=== PATIENT | female | born 1940 | race Caucasian/White ===

== ENCOUNTER 2018-02-19 14:22 | Inpatient (IN) ==
[2018-02-19] MEDS: tiZANidine 4 MG TABLET PO PRN (22:22)
[2018-02-19] MEDS: traMADol 50 MG TABLET PO PRN (22:22)
[2018-02-20] MEDS: ALPRAZolam 1 MG TABLET PO PRN ×2 (01:45→19:51)
[2018-02-20 05:08] LABS: Basophils % 0.5 %; Eosinophils # 0.1 K/mcL (0.0-0.6); Eosinophils % 1.8 %; Hematocrit 28.1 % (35.3-44.9); Hemoglobin 9.3 g/dL (11.5-15.4); Immature Granulocytes % 0.4 % (0-4); Lymphocytes # 2.4 K/mcL (0.6-4.6); Lymphocytes % 33.3 %; Mean Corpuscular HGB Conc 33.1 g/dL (31.6-35.5); Mean Corpuscular Hemoglobin 28.1 pg (28.0-33.3); Mean Corpuscular Volume 84.9 fL (83.0-100.0); Mean Platelet Volume 11.4 fL (9.4-12.4); Monocytes # 0.8 K/mcL (0.0-1.3); Monocytes % 10.3 %; Neutrophils # 3.9 K/mcL (1.6-8.9); Platelet Count 286 K/mcL (140-400); Red Blood Count 3.31 M/mcL (3.82-4.97); Red Cell Distribution Width 14.2 % (11.5-14.5); Segmented Neutrophils % 53.7 %
[2018-02-20 05:27] LABS: Alanine Aminotransferase 8 Units/L (7-52); Albumin 2.7 g/dL (3.5-5.7); Albumin/Globulin Ratio 1.1 (1.1-2.2); Alkaline Phosphatase 78 Units/L (34-104); Aspartate Amino Transferase 18 Units/L (13-39); BUN/Creatinine Ratio 22 (6-26); Bilirubin,Total 0.4 mg/dL (0.3-1.0); Blood Urea Nitrogen 16 mg/dL (8-23); Calcium 8.1 mg/dL (8.6-10.3); Carbon Dioxide 28 mEq/L (23-29); Chloride 104 mEq/L (98-107); Globulin 2.5 g/dL (2.4-3.5); Glucose 104 mg/dL (70-105); Osmolality,Calculated 287 (280-300); Potassium 3.4 mEq/L (3.5-5.1); Sodium 138 mEq/L (136-145); Total Protein 5.2 g/dL (6.4-8.9); eGFR For African Americans > 60 (> 60); eGFR For Non-African Americans > 60 (> 60)
[2018-02-20 05:36] LABS: INR 1.3; Prothrombin Time 14.7 Seconds (9.4-12.1)
[2018-02-20] MEDS: Metoprolol XL (24 HR) Succ 25 MG TAB.ER.24H PO SCH (08:00)
[2018-02-20] MEDS: Aspirin Enteric Coated 81 MG Tablet PO SCH (08:01)
[2018-02-20] MEDS: Furosemide 40 MG TABLET PO SCH (08:01)
[2018-02-20] MEDS: Acetaminophen 325 MG TABLET PO SCH ×3 (08:04→19:50)
[2018-02-20] MEDS: traMADol 50 MG TABLET PO PRN ×2 (08:04→15:03)
[2018-02-20] MEDS ORDERED: TIZANIDINE HCL 2 MG PO SCH (09:00)
--- NOTE | 2018-02-20 11:24 | Internal Med History&Physical ---
Date of Encounter: 02/20/18 Time of Encounter: 11:24 Assessment and Plan (1) Status post lumbar spinal fusion Current visit: No Status: Acute Patient had spinal fusion status post left lower leg weakness and footdrop. Was evaluated by PT/OT today Pain appears to be adequately controlled with tramadol, -Tramadol discontinued -Starting [place] 5/325 -Continue scheduled Tylenol 3 times daily (2) Hypertension Current visit: No Status: Chronic Stable continue home medications Continue to monitor vital signs per shift Qualifiers: Hypertension type: essential hypertension Qualified Code(s): I10 - Essential (primary) hypertension (3) COPD (chronic obstructive pulmonary disease) Current visit: No Status: Chronic Chronic but stable on examination today, saturating at room air continue home medications Qualifiers: COPD type: unspecified COPD Qualified Code(s): J44.9 - Chronic obstructive pulmonary disease, unspecified (4) Hypokalemia Current visit: Yes Status: Acute Appears to be secondary to renal loss, patient on Lasix; home medication Replaced once with 20 mEq Repeat levels tomorrow (5) Left foot drop Current visit: No Status: Chronic Her examination today, possibly having 4+/5 There appear to be some activation of her dorsal flexion on examination today Given that this might have been associated with her spinal stenosis, we will wait and see if physical therapy will improve this even further (6) History of CVA (cerebrovascular accident) Current visit: No Status: Chronic Patient had left-sided residual weakness on the left lower extremity After performing a complete neurological examination, the only noted 4+/5 on the left lower extremity Continue Plavix Continue aspirin 81 Cardiac diet Internal Medicine - H&P: HPI Chief complaint: status post L4/L5 fusion History of present illness: 77-year-old female past medical history of cerebellar stroke, CAD, HTN, COPD who is currently status post L4/L5 fusion following degenerative grade 1 anterior listhesis at L4/L5 as well as severe lumbar stenosis presented as a neurological deficit with left lower extremity numbness, weakness and left foot drop. Patient appear to have reported improved ambulation and was transferred to acute rehabilitation on 02/19/2018 Patient at the time of the interview explains that she feels the pain to be radiating, unable to explain what type of pain, and felt it was 5/10 at rest, and increases with movement without ability to describe rating. Appears to be more in pain with movement, and less pain with rest as well as medication. Described the [place] in the past have helped her more than what she is taking at this time. On review of system, the patient reports shortness of breath with exacerbation, was been chronic for a while, and believe it might be due to a postnasal drip. She does not endorse any GI or symptoms. Denied any chest pains or abdominal pain. Had a bowel movement yesterday, and uses a stool softener, but denied any constipation at this time. She reports that has inability to stay asleep due to her roommate. She also reports intermittent chronic left foot stalk-like numbness. She also reported that in the past her foot used to curl. Denied any tremors, denied any depression or anxiety. As of note the patient reports that she had right carotid artery stenosis, and usually gets frequent checks. Receives Plavix for it. We have discussed her CODE STATUS in detail, and she explained that she wishes to be DO NOT RESUSCITATE/cc-A Past Med Surg Social Fam HX - Past Medical History Medical history: coronary artery disease, CVA, hypertension Additional medical history: Brain Bleed Psychiatric history: anxiety - Past Surgical History Additional surgical history: cardiac stent. Deteriation of neck. Bilateral Carpal Tunnel - Social History Smoking Status: Former smoker Smokeless Tobacco Status: No Alcohol use: none Drug use: none - Family History Father Name: Nikolas Richmond Age: 56 Age at : 56 Cause of : Alchoholic Hx Family Neurologic Disorders: Yes (Seizures) Internal Medicine - H&P: Meds Albuterol Sulfate [Ventolin Hfa] 1 puff IH Q4H PRN 02/11/18 [History] Aspirin Enteric Coated [Aspirin EC] 81 mg PO QAM 02/11/18 [History] Cholecalciferol (D-3) [Vitamin D] 2,000 unit PO QPM 02/11/18 [History] Clopidogrel [Plavix] 75 mg PO QAM 02/11/18 [History] Furosemide [Lasix] 40 mg PO QAM 02/11/18 [History] Lisinopril [Zestril] 20 mg PO QPM 02/11/18 [History] Metoprolol XL (24 HR) Succ [Toprol Xl] 75 mg PO QAM 02/11/18 [History] Rosuvastatin [Crestor] 40 mg PO QPM 02/11/18 [History] ALPRAZolam [Xanax 1 MG Tablet] 1 mg PO QPM PRN 4 Days #4 tablet 02/19/18 [Rx] Docusate [Colace] 100 mg PO BID 4 Days #8 capsule 02/19/18 [Rx] Gabapentin [Neurontin] 300 mg PO QPM 4 Days #4 capsule 02/19/18 [Rx] Tizanidine HCl 2 mg PO TID 02/19/18 [History] 3 Allergy/AdvReac Type Severity Reaction Status Date / Time oxycodone AdvReac Itching Uncoded 02/19/18 21:52 All Systems PM: A 10-system review of systems was performed and is negative for pertinent findings except as documented above in the HPI. - Constitutional Constitutional: no chills, no fever(s), no night sweats - EENT Eyes: change in vision, no discharge, no pain, no photophobia Additional comments: Right eye blindness Ears: no ear discharge, no ear pain, no tinnitus Nose, mouth and throat: no dysphagia, no nasal discharge, no neck pain, no sore throat - Cardiovascular Cardiovascular ROS IM: no chest pain, no diaphoresis, no dyspnea, no lightheadedness, no palpitations, no syncope - Respiratory Respiratory: no cough, no dyspnea, no wheezing, no excessive phlegm production - Gastrointestinal Gastrointestinal: no abdominal pain, no diarrhea, no hematemesis, no hematochezia, no melena, no nausea, no vomiting - Genitourinary Genitourinary: no change in urinary stream, no dysuria, no flank pain, no hematuria - Musculoskeletal Musculoskeletal ROS IM: as per HPI, numbness, no tingling - Integumentary Integumentary IM: no rash, no unusual bruising - Neurological Neurological ROS: as per HPI, numbness, no confusion, no convulsions, no focal weakness, no tingling, no tremor(s) - Hematologic/Lymphatic Hematologic/Lymphatic: no easy bruising - Constitutional Vitals: Temp Pulse Resp BP Pulse Ox 98.4 F 94 18 124/63 94 02/20/18 07:54 02/20/18 07:54 02/20/18 07:54 02/20/18 07:54 02/20/18 07:54 - Head Head exam: Present: atraumatic, normocephalic - Eye Eye exam: Present: PERRL, conjuntiva pink, sclera anicteric Pupils: Present: PERRL - Neck Neck exam general surgery: Present: supple, trachea midline. Absent: lymphadenopathy - Respiratory Respiratory exam: Present: CTAB. Absent: accessory muscle use, rales, rhonchi, wheezes - Cardiovascular Cardiovascular exam: Present: RRR, +S1, +S2. Absent: diastolic murmur, gallop, rubs, systolic murmur - GI/Abdominal GI/Abdominal exam: Present: normal bowel sounds, soft, no peritoneal signs. Absent: distended, tenderness - Extremities Exam Extremities exam: Present: warm, radial pulses palpable and symmetrical. Absent : calf tenderness, cyanotic, pedal edema Additional comments: Patient has 4+/5 left lower extremity, but 5/5 the rest of the extremities - Neurological Exam Neurological exam: Present: CN II-XII intact, oriented X3, no focal deficits. Absent: pronater drift, facial droop, speech deficit - Skin Skin exam: Present: dry, intact Internal Med - H&P Results - Labs CBC & Chem 7: 02/20/18 04:40 02/20/18 04:40 Labs: Short CBC 02/20/18 Range/Units 04:40 WBC 7.3 (4.3-11.1) K/mcL Hgb 9.3 L (11.5-15.4) g/dL Hct 28.1 L (35.3-44.9) % Plt Count 286 (140-400) K/mcL Neutrophils # 3.9 (1.6-8.9) K/mcL BMP 02/20/18 04:40 Sodium 138 Potassium 3.4 L Chloride 104 Carbon Dioxide 28 BUN 16 Creatinine 0.74 Glucose 104 Calcium 8.1 L Liver Function 02/20/18 Range/Units 04:40 Total Bilirubin 0.4 (0.3-1.0) mg/dL AST 18 (13-39) Units/L ALT 8 (7-52) Units/L Alkaline Phosphatase 78 (34-104) Units/L Albumin 2.7 L (3.5-5.7) g/dL - VTE Reasons for not Prescribing Prophylaxis: Treatment not Indicated - Low risk for VTE Documentation of Mechanical Device: Graduated compression elastic hosiery
[2018-02-20] MEDS: Lisinopril 20 MG TABLET PO SCH (17:33)
[2018-02-20] MEDS: Gabapentin 300 MG CAPSULE PO SCH (17:33)
[2018-02-20] MEDS: Cholecalciferol (D-3) 1,000 UNIT TABLET PO SCH (17:33)
[2018-02-20] MEDS: *HR* HYDROcodone/Acet 5/325 mg TABLET PO PRN (19:51)
[2018-02-21] MEDS: tiZANidine 4 MG TABLET PO PRN ×2 (00:44→22:13)
[2018-02-21 05:44] LABS: BUN/Creatinine Ratio 29 (6-26); Blood Urea Nitrogen 24 mg/dL (8-23); Calcium 8.3 mg/dL (8.6-10.3); Carbon Dioxide 29 mEq/L (23-29); Chloride 103 mEq/L (98-107); Glucose 134 mg/dL (70-105); Osmolality,Calculated 292 (280-300); Potassium 3.6 mEq/L (3.5-5.1); Sodium 138 mEq/L (136-145); eGFR For African Americans > 60 (> 60); eGFR For Non-African Americans > 60 (> 60)
[2018-02-21] MEDS: Furosemide 40 MG TABLET PO SCH (09:05)
[2018-02-21] MEDS: Metoprolol XL (24 HR) Succ 25 MG TAB.ER.24H PO SCH (09:05)
[2018-02-21] MEDS: Aspirin Enteric Coated 81 MG Tablet PO SCH (09:05)
[2018-02-21] MEDS: Acetaminophen 325 MG TABLET PO SCH (09:05)
[2018-02-21] MEDS: *HR* HYDROcodone/Acet 5/325 mg TABLET PO PRN ×2 (12:05→23:55)
--- NOTE | 2018-02-21 16:03 | Internal Med Progress Note ---
Date of Encounter: 02/21/18 Time of Encounter: 16:00 - Assessment and plan (1) Status post lumbar spinal fusion Current Visit: No Status: Acute Assessment and plan: Patient is status post spinal fusion of the lumbar area, after experiencing left lower leg weakness and foot drop. She underwent evaluation by PT/OT yesterday. Appears to be well controlled with [place] 5/325 when necessary. -Continue scheduled Tylenol 3 times daily -Wound check today, appears to be intact and dry -Leave wound open to air (2) Hypertension Current Visit: No Status: Chronic Assessment and plan: Continue home medications, patient be stable Continue to monitor vitals per shift Qualifiers: Hypertension type: essential hypertension Qualified Code(s): I10 - Essential (primary) hypertension (3) COPD (chronic obstructive pulmonary disease) Current Visit: No Status: Chronic Assessment and plan: Stable, saturating at room air. Continue home meds Qualifiers: COPD type: unspecified COPD Qualified Code(s): J44.9 - Chronic obstructive pulmonary disease, unspecified (4) Hypokalemia Current Visit: Yes Status: Acute Assessment and plan: Normalized today status post 20 mEq of potassium chloride yesterday -Monitoring potassium levels tomorrow; suspect Lasix might be an offending factor -Patient might need chronic potassium supplementation (5) Left foot drop Current Visit: No Status: Chronic Assessment and plan: On examination; patient may have 4+/5 examination was adequate activation of her dorsal flexion Continue PT/OT (6) History of CVA (cerebrovascular accident) Current Visit: No Status: Chronic Assessment and plan: Patient does have left-sided residual weakness on the left lower extremity, however. Examination 4+/5 was elicited Continue PT/OT Continue Plavix/aspirin 81 and a cardiac diet - Time Spent With Patient 25 - 35 minutes - Subjective Interval history: Patient sitting comfortable in bed today, reported that she is suffering from bilateral lower feet edema. Had this prior, but worried about possible complication. Does not report any pain in the feet, nor warmth. Discussed that she usually gets swelling in her feet, that usually resolves at the end of the day when she elevates them. She is worried because she woke up with the swelling. She denied any shortness of breath, chest pain, nausea or vomiting. She denied any other GI or symptoms. - Constitutional Vitals: Temp Pulse Resp BP Pulse Ox 97.8 F 78 16 131/54 96 02/21/18 07:41 02/21/18 07:41 02/21/18 07:41 02/21/18 07:41 02/21/18 07:41 - Head Head exam: Present: atraumatic, normocephalic - Eye Eye exam: Present: PERRL, conjuntiva pink, sclera anicteric Pupils: Present: PERRL - Neck Neck exam general surgery: Present: supple, trachea midline. Absent: lymphadenopathy - Respiratory Respiratory exam: Present: CTAB. Absent: accessory muscle use, rales, rhonchi, wheezes - Cardiovascular Cardiovascular exam: Present: RRR, +S1, +S2. Absent: diastolic murmur, gallop, rubs, systolic murmur - GI/Abdominal GI/Abdominal exam: Present: normal bowel sounds, soft, no peritoneal signs. Absent: distended, tenderness - Extremities Exam Extremities exam: Present: pedal edema, warm, radial pulses palpable and symmetrical. Absent: calf tenderness, cyanotic Additional comments: Patient has +1 pitting edema bilateral feet - Back Exam Additional comments: Longitudinal incision in the lumbar area. Appears to be intact and dry. There is 2 sutures at the top and the bottom ends of the wound. - Neurological Exam Neurological exam: Present: CN II-XII intact, oriented X3, no focal deficits. Absent: pronater drift, facial droop, speech deficit - Skin Skin exam: Present: dry, intact Internal Medicine: Result - Labs CBC & Chem 7: 02/20/18 04:40 02/21/18 05:15 Labs: BMP 02/21/18 05:15 Sodium 138 Potassium 3.6 Chloride 103 Carbon Dioxide 29 BUN 24 H Creatinine 0.84 Glucose 134 H Calcium 8.3 L - ABG Interpretation ABG results: PT/INR, D-dimer PT 14.7 Seconds (9.4-12.1) H 02/20/18 04:40 - VTE Reasons for not Prescribing Prophylaxis: Treatment not Indicated - Low risk for VTE Documentation of Mechanical Device: Graduated compression elastic hosiery Consult Discharge Plan - Plan Referrals: Rogelio Forbes MD [Primary Care Provider] -
[2018-02-21] MEDS: Lisinopril 20 MG TABLET PO SCH (18:19)
[2018-02-21] MEDS: Gabapentin 300 MG CAPSULE PO SCH (18:19)
[2018-02-21] MEDS: Cholecalciferol (D-3) 1,000 UNIT TABLET PO SCH (18:19)
[2018-02-21] MEDS: ALPRAZolam 1 MG TABLET PO PRN (23:54)
[2018-02-22] MEDS: *HR* HYDROcodone/Acet 5/325 mg TABLET PO PRN ×3 (06:08→19:25)
[2018-02-22] MEDS: Aspirin Enteric Coated 81 MG Tablet PO SCH (08:37)
[2018-02-22] MEDS: Metoprolol XL (24 HR) Succ 25 MG TAB.ER.24H PO SCH (08:37)
[2018-02-22] MEDS: Furosemide 40 MG TABLET PO SCH (08:37)
--- NOTE | 2018-02-22 09:53 | Internal Med Progress Note ---
Date of Encounter: 02/22/18 Time of Encounter: 09:51 - Assessment and plan (1) Status post lumbar spinal fusion Current Visit: Yes Status: Acute Assessment and plan: Continue PT and OT. Will follow progress. Continue [place] for pain. Follow up with surgeon as scheduled. (2) History of CVA (cerebrovascular accident) Current Visit: Yes Status: Chronic Assessment and plan: No new neurological deficits. Slight left-sided weakness from old CVA. (3) Hypertension Current Visit: Yes Status: Chronic Assessment and plan: Controlled. Continue current medications. Monitor blood pressure. Qualifiers: Hypertension type: essential hypertension Qualified Code(s): I10 - Essential (primary) hypertension (4) COPD (chronic obstructive pulmonary disease) Current Visit: Yes Status: Chronic Assessment and plan: Controlled. On room air at this time. Will monitor. Patient is a current smoker. Refuses nicoderm patch Qualifiers: COPD type: unspecified COPD Qualified Code(s): J44.9 - Chronic obstructive pulmonary disease, unspecified - Time Spent With Patient 25 - 35 minutes - Subjective Interval history: Participating with therapy. States back pain is controlled [place]. Wearing back brace. Currently sitting at the side of the bed. Denies any new weakness to extremities. History of CVA with slight left-sided weakness. Denies fever, chills, nausea, vomiting or diarrhea. Denies shortness of breath or chest pain. Maintaining appetite and hydration. States bowels move this morning. Patient requesting to go home as soon as possible - Constitutional Vitals: Temp Pulse Resp BP Pulse Ox 97.3 F L 78 19 125/56 96 02/22/18 07:41 02/22/18 07:41 02/22/18 07:41 02/22/18 07:41 02/22/18 07:41 General appearance: Present: cooperative, A&O X 3, pleasant, no acute distress, answers questions appropriately - Head Head exam: Present: atraumatic, normocephalic - Eye Eye exam: Present: PERRL, conjuntiva pink, sclera anicteric Pupils: Present: PERRL - Neck Neck exam general surgery: Present: supple, trachea midline. Absent: lymphadenopathy - Respiratory Respiratory exam: Present: CTAB. Absent: accessory muscle use, rales, rhonchi, wheezes - Cardiovascular Cardiovascular exam: Present: RRR, +S1, +S2. Absent: diastolic murmur, gallop, rubs, systolic murmur - GI/Abdominal GI/Abdominal exam: Present: normal bowel sounds, soft, no peritoneal signs. Absent: distended, tenderness - Extremities Exam Extremities exam: Present: warm, radial pulses palpable and symmetrical. Absent : calf tenderness, cyanotic, pedal edema Additional comments: Slight left-sided weakness from old CVA. Strength 4 out of 5 on left - [place] Comments: Lumbar incision open air. Well approximated. No drainage. No redness. - Neurological Exam Neurological exam: Present: CN II-XII intact, oriented X3, no focal deficits. Absent: pronater drift, facial droop, speech deficit - Skin Skin exam: Present: dry, intact Internal Medicine: Result - Labs CBC & Chem 7: 02/20/18 04:40 02/22/18 05:50 Labs: BMP 02/22/18 05:50 Potassium 3.6 - ABG Interpretation ABG results: PT/INR, D-dimer PT 14.7 Seconds (9.4-12.1) H 02/20/18 04:40 - VTE Reasons for not Prescribing Prophylaxis: Treatment not Indicated - Low risk for VTE Documentation of Mechanical Device: Graduated compression elastic hosiery Consult Discharge Plan - Plan Referrals: Rogelio Forbes MD [Primary Care Provider] -
[2018-02-22] MEDS: Cholecalciferol (D-3) 1,000 UNIT TABLET PO SCH (17:35)
[2018-02-22] MEDS: Gabapentin 300 MG CAPSULE PO SCH (17:35)
[2018-02-22] MEDS: Lisinopril 20 MG TABLET PO SCH (17:36)
[2018-02-22] MEDS: tiZANidine 4 MG TABLET PO PRN (18:30)
[2018-02-22] MEDS: ALPRAZolam 1 MG TABLET PO PRN (19:25)
[2018-02-23] MEDS: *HR* HYDROcodone/Acet 5/325 mg TABLET PO PRN ×4 (02:00→20:18)
[2018-02-23] MEDS: Furosemide 40 MG TABLET PO SCH (07:59)
[2018-02-23] MEDS: Aspirin Enteric Coated 81 MG Tablet PO SCH (07:59)
[2018-02-23] MEDS: Metoprolol XL (24 HR) Succ 25 MG TAB.ER.24H PO SCH (07:59)
[2018-02-23] MEDS: tiZANidine 4 MG TABLET PO PRN ×2 (10:37→17:27)
--- NOTE | 2018-02-23 13:56 | Internal Med Progress Note ---
Date of Encounter: 02/23/18 Time of Encounter: 13:54 - Assessment and plan (1) Status post lumbar spinal fusion Current Visit: Yes Status: Acute Assessment and plan: Continue PT and OT. Will follow progress. Continue Check for pain. Follow up with surgeon as scheduled. (2) History of CVA (cerebrovascular accident) Current Visit: Yes Status: Chronic Assessment and plan: No new neurological deficits. Slight left-sided weakness from old CVA. (3) Hypertension Current Visit: Yes Status: Chronic Assessment and plan: Controlled. Continue current medications. Monitor blood pressure. Qualifiers: Hypertension type: essential hypertension Qualified Code(s): I10 - Essential (primary) hypertension (4) COPD (chronic obstructive pulmonary disease) Current Visit: Yes Status: Chronic Assessment and plan: Controlled. On room air at this time. Will monitor. Patient is a current smoker. Refuses nicoderm patch Qualifiers: COPD type: unspecified COPD Qualified Code(s): J44.9 - Chronic obstructive pulmonary disease, unspecified - Time Spent With Patient 25 - 35 minutes - Subjective Interval history: Participating with therapy. States back pain is controlled Check. Wearing back brace. Ambulating in hallway with Walker. Denies any new weakness to extremities. Denies fever, chills, nausea, vomiting or diarrhea. Denies shortness of breath or chest pain. Maintaining appetite and hydration. States bowels move this morning. Anxious to discharge. Patient states she is not sleeping well at night. Patient agreeable to discharge tomorrow. - Constitutional Vitals: Temp Pulse Resp BP Pulse Ox 97.9 F 89 16 156/84 96 02/23/18 07:35 02/23/18 07:35 02/22/18 18:39 02/23/18 07:35 02/23/18 07:35 General appearance: Present: cooperative, A&O X 3, pleasant, no acute distress, answers questions appropriately - Head Head exam: Present: atraumatic, normocephalic - Eye Eye exam: Present: PERRL, conjuntiva pink, sclera anicteric Pupils: Present: PERRL - Neck Neck exam general surgery: Present: supple, trachea midline. Absent: lymphadenopathy - Respiratory Respiratory exam: Present: CTAB. Absent: accessory muscle use, rales, rhonchi, wheezes - Cardiovascular Cardiovascular exam: Present: RRR, +S1, +S2. Absent: diastolic murmur, gallop, rubs, systolic murmur - GI/Abdominal GI/Abdominal exam: Present: normal bowel sounds, soft, no peritoneal signs. Absent: distended, tenderness - Extremities Exam Extremities exam: Present: warm, radial pulses palpable and symmetrical. Absent : calf tenderness, cyanotic, pedal edema - Neurological Exam Neurological exam: Present: CN II-XII intact, oriented X3, no focal deficits. Absent: pronater drift, facial droop, speech deficit - Skin Skin exam: Present: dry, intact Internal Medicine: Result - Labs CBC & Chem 7: 02/20/18 04:40 02/22/18 05:50 - ABG Interpretation ABG results: PT/INR, D-dimer PT 14.7 Seconds (9.4-12.1) H 02/20/18 04:40 - VTE Reasons for not Prescribing Prophylaxis: Treatment not Indicated - Low risk for VTE Documentation of Mechanical Device: Graduated compression elastic hosiery Consult Discharge Plan - Plan Referrals: Rogelio Forbes MD [Primary Care Provider] -
[2018-02-23] MEDS: Cholecalciferol (D-3) 1,000 UNIT TABLET PO SCH (17:26)
[2018-02-23] MEDS: Lisinopril 20 MG TABLET PO SCH (17:26)
[2018-02-23] MEDS: Gabapentin 300 MG CAPSULE PO SCH (17:26)
[2018-02-23] MEDS: ALPRAZolam 1 MG TABLET PO PRN (20:19)
[2018-02-24] MEDS: tiZANidine 4 MG TABLET PO PRN (00:57)
[2018-02-24] MEDS: *HR* HYDROcodone/Acet 5/325 mg TABLET PO PRN ×2 (03:58→10:23)
[2018-02-24 07:39] VITALS: BP 151/57
[2018-02-24] MEDS: Aspirin Enteric Coated 81 MG Tablet PO SCH (08:28)
[2018-02-24] MEDS: Metoprolol XL (24 HR) Succ 25 MG TAB.ER.24H PO SCH (08:28)
[2018-02-24] MEDS: Furosemide 40 MG TABLET PO SCH (08:29)
--- NOTE | 2018-02-24 09:55 | Discharge Summary ---
Date of Encounter: 02/24/18 Time of Encounter: 09:53 - Discharge Diagnosis (1) Status post lumbar spinal fusion Priority: Primary Status: Acute Comments: pain controlled. continue PT/OT. follow up with surgeon as scheduled. (2) History of CVA (cerebrovascular accident) Priority: Secondary Status: Chronic Comments: old CVA. no new neuro deficits at this time. (3) Hypertension Priority: Secondary Status: Chronic Comments: controlled with current meds. f/u with PCP Qualifiers: Hypertension type: essential hypertension Qualified Code(s): I10 - Essential (primary) hypertension (4) COPD (chronic obstructive pulmonary disease) Priority: Secondary Status: Chronic Comments: continue current meds. stable, follow up with PCP. Qualifiers: COPD type: unspecified COPD Qualified Code(s): J44.9 - Chronic obstructive pulmonary disease, unspecified Hospital course: Ms. Deleon is a 77 year old female discharging to home s/p short rehab stay after lumbar fusion. states pain controlled. ambulating with walker. discharging to home with daughters. Discharge discussed with: patient, nurse, social work - Time Spent with Patient Total time spent providing and/or coordinating discharge services: - Discharge Medications Home Medications: Albuterol Sulfate [Ventolin Hfa] 1 puff IH Q4H PRN 02/11/18 [History] Aspirin Enteric Coated [Aspirin EC] 81 mg PO QAM 02/11/18 [History] Cholecalciferol (D-3) [Vitamin D] 2,000 unit PO QPM 02/11/18 [History] Clopidogrel [Plavix] 75 mg PO QAM 02/11/18 [History] Furosemide [Lasix] 40 mg PO QAM 02/11/18 [History] Lisinopril [Zestril] 20 mg PO QPM 02/11/18 [History] Metoprolol XL (24 HR) Succ [Toprol Xl] 75 mg PO QAM 02/11/18 [History] Rosuvastatin [Crestor] 40 mg PO QPM 02/11/18 [History] ALPRAZolam [Xanax 1 MG Tablet] 1 mg PO QPM PRN 4 Days #4 tablet 02/19/18 [Rx] Docusate [Colace] 100 mg PO BID 4 Days #8 capsule 02/19/18 [Rx] Gabapentin [Neurontin] 300 mg PO QPM 4 Days #4 capsule 02/19/18 [Rx] Tizanidine HCl 2 mg PO TID 02/19/18 [History] Acetaminophen [Tylenol] 500 mg PO TID PRN tablet 02/24/18 [Rx] HYDROcodone/Acet 5/325 mg [[place] 5-325 mg] 1 tab PO Q6HR PRN 7 Days #20 tablet 02/24/18 [Rx] Allergies/Adverse Reactions: 3 Allergy/AdvReac Type Severity Reaction Status Date / Time oxycodone AdvReac Itching Uncoded 02/19/18 21:52 Date of admission: 02/19/18 19:58 Primary care physician: Rogelio Forbes MD Consults: 02/19/18 21:46 Consult to Occupational Therapy [CONS] Routine Comment: Evaluate, develop and implement POC Reason for Consult: eval Does patient have active BEDREST order?: No Is patient medically & hemodynamically stable?: Yes Consult to Physical Therapy [CONS] Routine Comment: Evaluate, develop and implement POC Reason for Consult: eval Does patient have active BEDREST order?: No Is patient medically & hemodynamically stable?: Yes Consult to Recreational Therapy [CONS] Routine Comment: Evaluate, develop and implement POC Consult to Se[employer] [CONS] Routine Reason for SW Consult: d/c planning 02/19/18 22:33 Consult to Pastoral Services [CONS] Routine Comment: Consult to [employer] [CONS] Routine Reason for SW Consult: Possible need for home health. Discharging clinician: Lonnie Drew Anticipated date of discharge: 02/24/18 - Constitutional Vitals: Temp Pulse Resp BP Pulse Ox 97.8 F 79 16 151/57 97 02/24/18 07:38 02/24/18 07:38 02/24/18 07:38 02/24/18 07:38 02/24/18 07:38 General appearance: Present: cooperative, A&O X 3, pleasant, no acute distress, answers questions appropriately - Head Head exam: Present: atraumatic, normocephalic - Eye Eye exam: Present: PERRL, conjuntiva pink, sclera anicteric Pupils: Present: PERRL - Neck Neck exam general surgery: Present: supple, trachea midline. Absent: lymphadenopathy - Respiratory Respiratory exam: Present: CTAB. Absent: accessory muscle use, rales, rhonchi, wheezes - Cardiovascular Cardiovascular exam: Present: RRR, +S1, +S2. Absent: diastolic murmur, gallop, rubs, systolic murmur - GI/Abdominal GI/Abdominal exam: Present: normal bowel sounds, soft, no peritoneal signs. Absent: distended, tenderness - Extremities Exam Extremities exam: Present: warm, radial pulses palpable and symmetrical. Absent : calf tenderness, cyanotic, pedal edema - Neurological Exam Neurological exam: Present: CN II-XII intact, oriented X3, no focal deficits. Absent: pronater drift, facial droop, speech deficit - Skin Skin exam: Present: dry, intact - Patient Status Disposition: Home, Self-Care Condition: Good Functional capacity at discharge: uses cane/walker Overall status at discharge: patient is progressing back to baseline - Discharge Instructions Instructions: Lumbar Spinal Fusion (DC), Lumbar Brace, Swing Ride Operator (GEN) Follow Up With: Rogelio Forbes MD [Primary Care Provider] - Yocasta Velazquez PAC [Physician Enrollment Management Vice President] - 03/02/18 2:00 pm (follow up appointment with surgery) - Diet and Activity Activity: as per physical therapy Diet: advance to your usual diet - VTE Reasons for not Prescribing Prophylaxis: Treatment not Indicated - Low risk for VTE Documentation of Mechanical Device: Graduated compression elastic hosiery
== END 2018-02-24 11:30 | disposition home or self-care (01) | DRG 949 ==
LOC: INPGRE 19:58